=== PATIENT | female | born 1955 | race American Indian/Alaskan Native ===

== ENCOUNTER 2017-08-29 09:02 | Day surgery (SDC) | payer BC ==
[2017-08-29] MEDS ORDERED: MORPHINE IV PRN (09:21)
[2017-08-29] MEDS ORDERED: ZOFRAN IV PRN (09:21)
[2017-08-29] MEDS ORDERED: PERCOCET 5/325 PO PRN (09:21)
--- NOTE | 2017-08-29 09:28 | Anesthesia Day of Surgery ---
Anesthesia Day of Surgery - Day of Surgery Patient Examined: Yes Patient H&P Reviewed: Yes Patient is NPO: Yes
--- NOTE | 2017-08-29 09:28 | Anesthesia Consultation ---
Anesthesia Consult and Med Hx Date of service: 08/29/17 - Airway Anesthetic Teeth Evaluation: Good ROM Head & Neck: Adequate Mental/Hyoid Distance: Adequate Mallampati Class: Class II Intubation Access Assessment: Probably Good - Pulmonary Exam CTA: Yes - Cardiac Exam Cardiac Exam: RRR - Pre-Operative Health Status ASA Pre-Surgery Classification: ASA1 Proposed Anesthetic Plan: General - Central Nervous System Hx Psychiatric Problems: No - Gastrointestinal Hx Gastroesophageal Reflux Disease: Yes (rare) - Other Systems Hx Alcohol Use: Yes (occas) Hx Cancer: No
[2017-08-29 09:59] LABS: Hematocrit 43.6 % (30.3-42.9); Hemoglobin 14.1 gm/dl (10.1-14.3)
--- NOTE | 2017-08-29 09:59 | Short Stay Summary ---
Short Stay Documentation Date of service: 08/29/17 Narrative H&P: Pt is a 61yo BF LMP 23 years ago s/p uterine ablation, presents with Cervical Dysplasia and is now scheduled for a Cervical ablation. Pt did not tolerate an attempt for in-office ablation. - History Principal diagnosis: Cervical ablation H&P: obtained from office Past Medical History: No medical history Past Surgical History: Other (uterine ablation) Social history: no significant social history, - Allergies and Medications Current Medications: Allergies codeine Allergy (Verified 08/24/17 16:45) Unknown Home Medications Medication Instructions Recorded Confirmed Last Taken Type No Known Home Medications [No 08/24/17 08/24/17 Unknown History Reported Home Medications] Active Medications Famotidine (Pepcid) 20 mg PO PREOP NR Stop: 08/29/17 12:00 Lactated Ringer's (Lactated Ringers) 1,000 mls @ 125 mls/hr IV DIRECT RELL Midazolam HCl (Versed) 2 mg IV PREOP NR Stop: 08/29/17 23:59 Morphine Sulfate (Morphine) 2 mg IV Q10MIN PRN PRN Reason: Pain, Moderate (4-6) Stop: 08/29/17 14:00 Ondansetron HCl (Zofran) 4 mg IV ONCE PRN PRN Reason: Nausea And Vomiting Stop: 08/29/17 10:00 Oxycodone/Acetaminophen (Percocet 5/325) 1 tab PO ONCE PRN PRN Reason: Pain, Moderate (4-6) - Physical exam General appearance: no acute distress Integumentary: no rash HEENT: Atraumatic Lungs: Clear to auscultation Breasts: deferred Heart: Regular rate Gastrointestinal: normal Female Genitourinary: deferred Extremities: No edema Neurological: Normal gait, Normal speech - Brief post op/procedure progress note Date of procedure: 08/29/17 Pre-op diagnosis: Cervical dysplasia Post-op diagnosis: same Procedure: Cervical ablation Anesthesia: MAC Findings: A small uterus with cervix almost flushed with the vaginal wall. Surgeon: MODESTO ISBELL Estimated blood loss: none Pathology: none Condition: stable - Hospital course Hospital course: Unremarkable. - Disposition Condition at discharge: Good Disposition: DC-01 TO HOME OR SELFCARE - Discharge Diagnoses (1) Cervical dysplasia, moderate Status: Resolved Short Stay Discharge Plan Activity: no restrictions Diet: regular Follow up with: LUIS MARC MD [Primary Care Provider] - 7 Days MODESTO ISBELL MD [Staff Physician] - 14 Days Prescriptions: Ibuprofen [Motrin] 800 mg PO Q8HR PRN #20 tablet PRN Reason: Pain, Moderate (4-6)
[2017-08-29] MEDS ORDERED: VERSED IV NR (10:00)
[2017-08-29] MEDS ORDERED: ANCEF/STERILE WATER 2 GM/20 ML 2 GM/20 ML SYRINGE IV NR (10:00)
[2017-08-29] MEDS ORDERED: PEPCID PO NR (10:00)
[2017-08-29] MEDS: LACTATED RINGERS 1,000 ML IV SCH ×2 (10:00→14:10)
[2017-08-29] MEDS ORDERED: DIPRIVAN 10 MG/ML IV ONE (10:12)
[2017-08-29] MEDS ORDERED: DILAUDID ONE (10:12)
[2017-08-29] MEDS ORDERED: XYLOCAINE MPF 2% ONE (10:14)
[2017-08-29] MEDS ORDERED: MONSEL'S TP ONE ×2 (11:10→11:17)
[2017-08-29] MEDS ORDERED: NACL 0.9% IR ONE (11:10)
[2017-08-29] MEDS ORDERED: DECADRON ONE (11:14)
[2017-08-29] MEDS ORDERED: ROBINUL ONE (11:14)
[2017-08-29] MEDS ORDERED: ZOFRAN ONE ×2 (11:14→14:10)
[2017-08-29] MEDS ORDERED: TORADOL ONE (11:30)
--- NOTE | 2017-08-29 11:32 | Operative Report ---
Operative Report Operative Report: Date of procedure: 08/29/2017 Pre-operative diagnosis: Cervical dysplasia Post-operative diagnosis: Same Procedure name(s): Cervical ablation Surgeon: Gary Leger MD Quarter Backer: None Anesthesia: Gen. mask EBL: Minimal Findings: Small uterus with cervix almost flush against the vaginal wall Procedure: After the patient was correctly identified, she was prepped and draped in the usual sterile fashion and placed in the dorsolithotomy position. First the bladder was emptied using a straight catheter. Next a speculum was placed placed in vaginal vault and the cervix was observed to be almost flushed against the vaginal wall. There was an abnormal looking area at the 6 o'clock position of the cervix. The cervix was ablated using the rollerball, and after complete ablation the procedure was considered complete. All instruments removed from the vagina. The patient tolerated the procedure well and was transferred to recovery in stable condition.
[2017-08-29] MEDS ORDERED: ZOFRAN IV SCH (14:10)
[2017-08-29 14:58] VITALS: BP 134/75
== END 2017-08-29 15:10 | disposition home or self-care (01) ==
LOC: OR 09:02
PROVIDERS: ATTEND Obstetrics & Gynecology
DX: K21.9 Gastro-esophageal reflux disease without esophagitis (principal); Z88.5 Allergy status to narcotic agent; Z91.040 Latex allergy status
CPT/HCPCS: 36415; 57510; 85014; 85018; J0690; J1100; J1170; J1885; J2250; J2405; J2704; J7120